=== PATIENT | male | born 1990 | race Hispanic/Latino ===

== ENCOUNTER 2017-02-12 12:28 | Emergency (ER) | payer OTHER ==
[2017-02-12 12:46] VITALS: O2SAT 99
--- NOTE | 2017-02-12 13:14 | C.PDOC ---
History Of Present Illness 26 year old male with a history of kidney stones, presents to the ED with complaints of right sided abdominal pain radiating to his right flank for the past 3 days. Patient states the symptoms feel similar to prior kidney stone pain. Patient denies fever/chills, nausea, vomiting, diarrhea, dysuria. Time Seen by Provider: 02/12/17 12:49 Chief Complaint (Nursing): Abdominal Pain History Per: Patient History/Exam Limitations: no limitations Onset/Duration Of Symptoms: Days Current Symptoms Are (Timing): Still Present Severity: Mild Radiation Of Pain To:: Flank (Right flank) Quality Of Discomfort: "Pain" Associated Symptoms: denies: Fever, Chills, Nausea, Vomiting, Diarrhea Past Medical History Reviewed: Historical Data, Nursing Documentation, Vital Signs Vital Signs: Last Vital Signs Temp 97.9 F 02/12/17 16:05 Pulse 76 02/12/17 16:05 Resp 20 02/12/17 16:05 BP 108/67 02/12/17 16:05 Pulse Ox 99 02/12/17 16:05 - Medical History PMH: Kidney Stones Surgical History: Appendectomy Family History: States: No Known Family Hx - Social History Hx Alcohol Use: Yes Hx Substance Use: No - Immunization History Hx Tetanus Toxoid Vaccination: Yes Hx Influenza Vaccination: No Hx Pneumococcal Vaccination: No Review Of Systems Except As Marked, All Systems Reviewed And Found Negative. Constitutional: Negative for: Fever, Chills Cardiovascular: Negative for: Chest Pain Respiratory: Negative for: Cough, Shortness of Breath Gastrointestinal: Positive for: Abdominal Pain (+Right abdominal pain radiating to the right flank). Negative for: Nausea, Vomiting, Diarrhea Physical Exam - Physical Exam Appears: Well, Non-toxic, No Acute Distress Skin: Normal Color, Warm, Dry Head: Normacephalic Eye(s): bilateral: Normal Inspection Oral Mucosa: Moist Cardiovascular: Rhythm Regular Respiratory: Normal Breath Sounds, No Accessory Muscle Use, No Rales, No Rhonchi , No Wheezing Gastrointestinal/Abdominal: Bowel Sounds, Soft, Tenderness (+Right paraumbilical tenderness to palpation), No Distention, No Guarding, No Rebound Back: CVA Tenderness (+Right CVA tenderness) Male Genital: No Testicular Swelling Extremity: Normal ROM Neurological/Psych: Oriented x3 ED Course And Treatment - Laboratory Results Result Diagrams: 02/12/17 14:06 02/12/17 14:06 O2 Sat by Pulse Oximetry: 99 (RA) Pulse Ox Interpretation: Normal - CT Scan/US CT ABD/PELVIS Other Rad Studies (CT/US): Read By Radiologist, Radiology Report Reviewed CT/US Interpretation: Accession No. : [id number]. Patient Name / ID : MARCELL RAMIREZ / [id number]. Exam Date : 02/12/2017 15:18:40 ( Approved ). Study Comment : Sex / Age : M / 26Y. Creator : Maurice Selby MD. Dictator : Maurice Selby MD. Rap Artist : Stage Technician : Maurice Selby MD. Approver2 : Report Date : 02/12/2017 15:42:37. My Comment : . PROCEDURE: CT Abdomen and pelvis dated 02/12/2017. HISTORY: RIGHT FLANK, RLQ PAIN, R/O KIDNEY STONE. COMPARISON: No prior studies available for comparison. TECHNIQUE: Contiguous axial images of the abdomen and pelvis performed without oral or intravenous contrast material. Additional 2 dimensional sagittal and coronal reformats provided. Radiation dose: Total exam DLP = 682.77 7 mGy-cm. FINDINGS: LOWER THORAX: The lung bases are clear without infiltrate effusion or basilar pneumothorax. There appears to be tiny hiatal hernia. Heart size is within range of normal. No significant pericardial effusion. LIVER: The liver exhibits normal size measuring approximately 14.5 cm in CC dimension. No obvious hepatic mass collection or calcification. Liver exhibits normal attenuation pattern. GALLBLADDER AND BILE DUCTS: Un gallbladder is physiologically distended. No evidence of intraluminal gallbladder calculi. No significant extrahepatic biliary ductal dilatation. . PANCREAS: Visualized portions the pancreas unremarkable. SPLEEN: Spleen exhibits normal size and attenuation pattern. ADRENALS: There are no adrenal lesions. KIDNEYS AND URETERS: Kidneys exhibit symmetric size. There is a very tiny approximately 3 mm calculus lower pole right kidney. There is mild columnization of both ureters however no evidence of eddie hydronephrosis. BLADDER: Urinary bladder is incompletely distended which may account this could for slight prominent urinary bladder wall. Muscular hypertrophy may contribute. Possibility of a cystitis not completely exclude. REPRODUCTIVE: Uterus and adnexal structures unremarkable. APPENDIX: What probably represents retrocecal appendix best seen on axial image number [id number]. No obvious periappendiceal inflammatory changes are identified. . BOWEL: Evaluation of the bowel is limited due to the lack of oral contrast material. Stomach is incompletely distended which may account for slight thick-walled appearance. Visualized loops of small bowel exhibit normal contour and caliber. No evidence of acute mechanical small bowel obstruction. Stool and air seen throughout the colon. PERITONEUM: Unremarkable. No fluid collection. No free air. Tiny fat containing umbilical hernia. LYMPH NODES: No significant adenopathy. VASCULATURE: Unremarkable. No aortic aneurysm. BONES: The osseous structures appear intact. OTHER FINDINGS: None. IMPRESSION: Small approximately 3 mm calculus lower pole right kidney. There is low very slight columnization of both ureters however no evidence of eddie hydronephrosis. Urinary bladder is incompletely distended which may account for slight thick-walled appearance. Possibility of a cystitis not completely excluded Progress Note: Blood work, Urinalysis, CT scan abd/pelvis ordered and reviewed. Patient given IV NS bolus, IV toradol. Reevaluation Time: 16:00 Reassessment Condition: Improved (Patient reassessed, is resting comfortably, currently in no pain or distress. CT scan shows 3mm stone in right kidney without hydronephrosis. Patient is comfortable being discharged home at this time, he was given Rxs for flomax and pain medication. He was instructed to follow up with urology within 1 week, and understands he should return to ED if symptoms worsen.) Disposition Counseled Patient/Family Regarding: Studies Performed, Diagnosis, Need For Followup, Rx Given - Disposition Referrals: Carmen Gregg MD [Staff Provider] - Disposition: HOME/ ROUTINE Disposition Time: 16:00 Condition: STABLE Additional Instructions: FOLLOW UP WITH YOUR DOCTOR IN 1-2 DAYS, AND WITH UROLOGY WITHIN 1 WEEK USE MEDICATIONS DIRECTED RETURN TO ER IF SYMPTOMS WORSEN Prescriptions: Tamsulosin [Flomax] 0.4 mg PO DAILY #5 cap Acetaminophen with Codeine [Tylenol with Codeine #3 Tablet] 1 each PO Q6 PRN # 12 tablet PRN Reason: pain Instructions: Kidney Stones (ED), Renal Colic (ED) Print Language: ARABIC - POA Present On Arrival: None - Clinical Impression Clinical Impression: Kidney stone on right side - Scribe Statement The provider has reviewed the documentation as recorded by the Scribe Jacy Gonzalez. Provider Attestation: All medical record entries made by the Scribe were at my direction and personally dictated by me. I have reviewed the chart and agree that the record accurately reflects my personal performance of the history, physical exam, medical decision making, and the department course for this patient. I have also personally directed, reviewed, and agree with the discharge instructions and disposition.
[2017-02-12 13:31] LABS: RBC URINE 7 /hpf (0-3); URINE BACTERIA RARE (<OCC); URINE BILIRUBIN NEGATIVE (NEGATIVE); URINE BLOOD 1+ (NEGATIVE); URINE COLOR Yellow (YELLOW); URINE GLUCOSE (UA) NORMAL (Normal); URINE KETONE NEGATIVE (NEGATIVE); URINE LEUKOCYTE ESTERASE 1+ Leu/uL (Negative); URINE PROTEIN NEGATIVE (NEGATIVE); URINE UROBILINOGEN NORMAL mg/dL (0.2-1.0); WBC URINE 5 /hpf (0-5)
[2017-02-12] MEDS ORDERED: Sodium Chloride 0.9% 1,000 ML IV ONE (13:44)
[2017-02-12 14:16] LABS: BASO # 0.1 K/uL (0.0-0.2); BASO % 0.8 % (0.0-2.0); EOS # 0.1 K/uL (0.0-0.7); EOS % 1.4 % (0.0-4.0); HEMATOCRIT 44.4 % (35.0-51.0); LYMPH # 2.2 K/uL (1.0-4.3); LYMPH % 34.1 % (20.0-40.0); MEAN CELL VOLUME 87.3 fL (80.0-94.0); MEAN CORPUSCULAR HEMOGLOBIN 28.8 pg (27.0-31.0); MEAN PLATELET VOLUME 7.4 fL (7.2-11.7); MONO # 0.5 K/uL (0.0-0.8); MONO % 7.4 % (0.0-10.0); RED CELL DISTRIBUTION WIDTH 12.5 % (11.5-14.5); WHITE BLOOD COUNT 6.3 K/uL (4.8-10.8)
[2017-02-12 14:24] LABS: CHLORIDE 101 mmol/L (98-107); POTASSIUM 4.4 mmol/L (3.6-5.2); SODIUM 141 mmol/L (132-148)
[2017-02-12 14:26] LABS: ALB/GLOB RATIO 1.3 (1.0-2.1); AST/SGOT 29 U/L (17-59); BILIRUBIN,TOTAL 0.8 mg/dL (0.2-1.3); CARBON DIOXIDE 28 mmol/L (22-30); GFR AFRICAN-AMERICAN > 60; TOTAL PROTEIN 7.5 g/dL (6.3-8.3)
[2017-02-12 14:27] LABS: ALKALINE PHOSPHATASE 79 U/L (38-126); ALT/SGPT 49 U/L (21-72); BLOOD UREA NITROGEN 10 mg/dL (9-20); CALCIUM 9.3 mg/dl (8.6-10.4); GLUCOSE,RANDOM 81 mg/dL (75-110)
--- NOTE | 2017-02-12 15:44 | CT ---
PROCEDURE: CT Abdomen and pelvis dated 02/12/2017 HISTORY: RIGHT FLANK, RLQ PAIN, R/O KIDNEY STONE COMPARISON: No prior studies available for comparison TECHNIQUE: Contiguous axial images of the abdomen and pelvis performed without oral or intravenous contrast material. Additional 2 dimensional sagittal and coronal reformats provided. Radiation dose: Total exam DLP = 682.77 7 mGy-cm. FINDINGS: LOWER THORAX: The lung bases are clear without infiltrate effusion or basilar pneumothorax. There appears to be tiny hiatal hernia. Heart size is within range of normal. No significant pericardial effusion. LIVER: The liver exhibits normal size measuring approximately 14.5 cm in CC dimension. No obvious hepatic mass collection or calcification. Liver exhibits normal attenuation pattern. GALLBLADDER AND BILE DUCTS: Un gallbladder is physiologically distended. No evidence of intraluminal gallbladder calculi. No significant extrahepatic biliary ductal dilatation. . PANCREAS: Visualized portions the pancreas unremarkable. SPLEEN: Spleen exhibits normal size and attenuation pattern. ADRENALS: There are no adrenal lesions. KIDNEYS AND URETERS: Kidneys exhibit symmetric size. There is a very tiny approximately 3 mm calculus lower pole right kidney. There is mild columnization of both ureters however no evidence of eddie hydronephrosis. BLADDER: Urinary bladder is incompletely distended which may account this could for slight prominent urinary bladder wall. Muscular hypertrophy may contribute. Possibility of a cystitis not completely exclude. REPRODUCTIVE: Uterus and adnexal structures unremarkable. APPENDIX: What probably represents retrocecal appendix best seen on axial image number [id number]. No obvious periappendiceal inflammatory changes are identified. . BOWEL: Evaluation of the bowel is limited due to the lack of oral contrast material. Stomach is incompletely distended which may account for slight thick-walled appearance. Visualized loops of small bowel exhibit normal contour and caliber. No evidence of acute mechanical small bowel obstruction. Stool and air seen throughout the colon. PERITONEUM: Unremarkable. No fluid collection. No free air. Tiny fat containing umbilical hernia. LYMPH NODES: No significant adenopathy VASCULATURE: Unremarkable. No aortic aneurysm. BONES: The osseous structures appear intact. OTHER FINDINGS: None. IMPRESSION: Small approximately 3 mm calculus lower pole right kidney. There is low very slight columnization of both ureters however no evidence of eddie hydronephrosis. Urinary bladder is incompletely distended which may account for slight thick-walled appearance. Possibility of a cystitis not completely excluded
[2017-02-12 16:06] VITALS: BP 108/67; PULSE 76; RESP 20; TEMP 97.9
== END 2017-02-12 16:16 | disposition home or self-care (01) ==
LOC: C.ER 12:28
DX: N20.0 Calculus of kidney (principal); Z87.442 Personal history of urinary calculi
CPT/HCPCS: 74176; 80053; 81001; 85025; 87086; 96361; 96374; 99284; J1885; J7040